=== PATIENT | female | born 1960 | race Caucasian/White ===

== ENCOUNTER → 2018-05-15 | Outpatient (CLI) | payer OTHER ==
[~2018-05-15] MED LIST: EFFEXOR XR75 MG/CAP PO; REQUIP 1MG T1 MG/TAB PO; WELLBUTRIN XL150 MG PO
== END ==
LOC: MHCPAIN 14:23
DX: G89.29 Other chronic pain (principal); M47.817 Spondylosis without myelopathy or radiculopathy, lumbosacral region; M54.16 Radiculopathy, lumbar region; M53.3 Sacrococcygeal disorders, not elsewhere classified
CPT/HCPCS: G0463

== ENCOUNTER → 2018-05-31 | Outpatient (CLI) | payer OTHER | LOC: MHCPAIN 08:57 | DX: M47.817 Spondylosis without myelopathy or radiculopathy, lumbosacral region (principal); M54.16 Radiculopathy, lumbar region | CPT/HCPCS: J1100; Q9967 ==

== ENCOUNTER → 2018-06-12 | Outpatient (CLI) | payer OTHER | LOC: MHCPAIN 08:14 | DX: G89.29 Other chronic pain (principal); M47.817 Spondylosis without myelopathy or radiculopathy, lumbosacral region; M54.16 Radiculopathy, lumbar region; M53.3 Sacrococcygeal disorders, not elsewhere classified; M48.061 Spinal stenosis, lumbar region without neurogenic claudication | CPT/HCPCS: G0463 ==

== ENCOUNTER → 2018-06-14 | Outpatient (CLI) | payer OTHER | LOC: MHCPAIN 10:02 | DX: M47.817 Spondylosis without myelopathy or radiculopathy, lumbosacral region (principal); M54.16 Radiculopathy, lumbar region | CPT/HCPCS: J1100; Q9967 ==

== ENCOUNTER → 2019-09-26 | Outpatient (CLI) | payer OTHER | LOC: COL.RAD 10:16 | DX: Z01.812 Encounter for preprocedural laboratory examination (principal); R10.33 Periumbilical pain | CPT/HCPCS: Q9967 ==

== ENCOUNTER → 2020-03-06 | Outpatient (CLI) | payer OTHER | LOC: COL.RAD 08:08 | DX: M51.26 Other intervertebral disc displacement, lumbar region (principal); M89.38 Hypertrophy of bone, other site; M48.061 Spinal stenosis, lumbar region without neurogenic claudication; M47.816 Spondylosis without myelopathy or radiculopathy, lumbar region ==

== ENCOUNTER → 2021-01-04 | Outpatient (CLI) | payer OTHER | LOC: COL.RAD 09:20 | DX: R25.1 Tremor, unspecified (principal); R90.89 Other abnormal findings on diagnostic imaging of central nervous system | CPT/HCPCS: A9585 ==